=== PATIENT | female | born 1995 | race Caucasian/White ===

== ENCOUNTER 2018-04-19 13:03 | Emergency (ER) | payer SELFPAY ==
[2018-04-19 13:04] VITALS: BP 128/77; PULSE 88; RESP 18; TEMP 36.6; O2SAT 98; BMI 23.9
--- NOTE | 2018-04-19 13:36 | ED.VISSUMM ---
- ER Visit Summary Date of Service: 04/19/18 Chief Complaint: Foreign body bilateral ears History of Present Illness: The patient is a 22 F who states that she was working on her significant other Joanne believes she has metal in both ears. Significant other states that he used his cell phone camera and phone to visualize the metal in her ear canal. Patient states that she can hear the metal ringing when she speaks. She also reports decreased hearing in the left ear. Physical Examination: Afebrile vital signs are stable The only abnormality I see her ear canal on the left is a tiny whites back [address] the eardrum on the lower aspect of the canal. There is no metallic body seen. The tympanic membranes are intact and not erythematous. Emergency Department Course and Treatment: We used warm water to irrigate the ear I no longer see the tiny white back. Tympanic membranes are intact minimally red now which should resolve. Patient states that she can now feel the foreign body down near her mastoid process. I do not believe that that is an actual thing. I believe this to be psychosomatic in nature. If symptoms persist she may follow-up with ear nose and throat. Impression: 1. Tinnitus This note was generated with SkyBridge dictation software. It may contain incorrect words, spelling, and punctuation that were not noted in review of the chart prior to signing ED Disposition - Plan for ED Patient: Disposition: Home or Assisted Living Chief Complaint: Ear Problem Referrals: Matt Kowalski MD [STAFF PHYSICIAN] - (Call for ENT appointment if symptoms are persisting.)
== END 2018-04-19 13:59 | disposition home or self-care (01) ==
PROVIDERS: Emergency Provider Emergency Medicine
DX: H93.13 Tinnitus, bilateral (principal)
CPT/HCPCS: 99282

== ENCOUNTER 2025-06-24 16:16 | Emergency (ER) | payer OTHER, SELFPAY ==
[2025-06-24 16:18] VITALS: BP 107/64; PULSE 79; RESP 15; TEMP 36.5; O2SAT 100; BMI 22.8
[2025-06-24 18:17] VITALS: BP 95/60; PULSE 70; RESP 16; O2SAT 100
[2025-06-24 18:33] LABS: Hematocrit 36.6 % (37-47); Hemoglobin 12.7 g/dL (12.0-15.0); Immature Granulocytes Count 0.050 X10^3/uL (0.0-0.0); Mean Corp Hgb Conc 34.7 g/dL (32-36); Mean Corpuscular Volume 87.8 fL (81-99); Mean Platelet Vol. 10.4 fl (6.2-12.0); NRBC Flagged by Analyzer 0 % (0-5); Platelet Count 185 K/mm3 (150-450); RBC Distribution Width CV 13.7 % (11.6-14.6); RBC Distribution Width SD 43.8 fl (35.1-43.9); Red Blood Count 4.17 M/mm3 (4.2-5.4); White Blood Count 10.6 K/mm3 (4.4-11.0)
[2025-06-24 18:40] LABS: Mucous, Urine 0 SEEN /hpf (<or=2+)
[2025-06-24 19:27] LABS: Color, Urine Yellow (Yellow); Glucose, Dipstick Normal (Normal); Ketone-Dipstick 5 mg/dl (Negative); Leukocyte Esterase-Dipstick Negative /ul (Negative); Nitrite-Dipstick Negative (Negative); Occult Blood-Urine 50 /ul (Negative); Protein-Dipstick 15 mg/dl (Negative); Specific Gravity, Urine 1.015 (1.002-1.030); Urine Bilirubin Dipstick Negative (Negative)
[2025-06-24 19:32] LABS: hCG Titer Quant., Serum 98204 mIU/mL (<9 non-preg)
[2025-06-24 20:00] VITALS: BP 100/63; PULSE 69; O2SAT 100
--- NOTE | 2025-06-24 20:22 | EDS_ITS ---
HPI HPI - Female History of Present Illness Chief Complaint: Vag Bld, Preg Informant: patient Associated Symptoms P: 2 PFSH PFSH Medical History (Updated 06/24/25 @ 20:[address] Giana Guerra DO) (vaginal after ) delivery delivered Home Medications ?Medication ?Instructions ?Recorded ?Last Taken ?Type vitamins no.102-iron 90 1 cap PO DAILY Unknown History mg-folate 1 mg-dha 200 mg capsule Allergy/AdvReac Type Severity Reaction Status Date / Time No Known Allergies Allergy Verified 06/24/25 16:22 Family History no significant family his Social History Smoking Status: Former smoker EXAM Physical Exam Const Vital Signs: 06/24/25 16:18 06/24/25 18:17 06/24/25 20:00 Temperature 97.7 F L Temperature Source Temporal Pulse Rate 79 70 69 Respiratory Rate 15 16 Blood Pressure 107/64 95/60 100/63 Blood Pressure Mean 78 71 75 Pulse Ox 100 100 100 Oxygen Delivery Method Room Air Room Air Room Air MDM MDM Lab Data Labs: Laboratory Results - last 24 hr 06/24/25 06/24/25 17:40 18:35 WBC 10.6 RBC 4.17 L Hgb 12.7 Hct 36.6 L MCV 87.8 MCH 30.5 MCHC 34.7 RDW Std Deviation 43.8 RDW Coeff of [place] 13.7 Plt Count 185 MPV 10.4 Immature Gran % (Auto) 0.500 Neut % (Auto) 67.3 Lymph % (Auto) 25.7 [place] % (Auto) 3.9 Eos % (Auto) 2.2 Baso % (Auto) 0.4 Absolute Neuts (auto) 7.1 Absolute Lymphs (auto) 2.72 Nucleated RBC % 0 HCG, Quant 97283 H Urine Color Yellow Urine Clarity Clear Urine pH 6.5 Ur Specific [place] 1.015 Urine Protein 15 H Urine Glucose (UA) Normal Urine Ketones 5 H Urine Occult Blood 50 H Urine Nitrite Negative Urine Bilirubin Negative Urine Urobilinogen Normal Ur Leukocyte Esterase Negative Blood Type O POSITIVE Discharge Plan Triage Chief Complaint: Vag Bld, Preg ED Provider: Giana Guerra Dx/Rx/DC Orders Clinical Impression: Vaginal bleeding before 22 weeks gestation, Intrauterine Instructions: ED Abdominal Pain, Early , ED Prescriptions: No Action PNV [id number]-[id number] 90 mg iron- 1 mg-200 mg capsule 1 cap PO DAILY Primary Care Provider: Care Physician,No Primary Referrals: Care Physician,No Primary [Primary Care Provider] - Activity Restrictions/Additional Instructions: Call your [facility] INVESTIGATOR. Your ER bedside ultrasound is more consistent with around 10 weeks. Please follow-up with your [facility] INVESTIGATOR for dating ultrasound and further evaluation. Print Language: Yakut Disposition Disposition: Home, Self Care
--- NOTE | 2025-06-24 20:22 | ED.VIS.FEGU ---
HPI HPI - Female History of Present Illness Chief Complaint: Vag Bld, Preg Informant: patient Associated Symptoms P: 2 Narrative Narrative: Patient is a 30-year-old female presenting with vaginal bleeding early . She believes she is 17 weeks based on her last menstrual period. She has not seen DIE TECHNICIAN or establish for care yet. She states that last night around 3 AM she had a sharp pain in her right groin area. Today around 12 PM she had about an hour or 2 of vaginal bleeding. States initially was heavy but no passage of clots. The pain has since stopped. She did have intercourse last night. She currently denies any pain. Denies any other urinary symptoms. Follows with DIE TECHNICIAN in [place]. No other complaints or concerns at this time. [facility] Medical History (vaginal after ) delivery delivered Home Medications ?Medication ?Instructions ?Recorded ?Last Taken ?Type vitamins no.102-iron 90 1 cap PO DAILY 06/24/25 Unknown History mg-folate 1 mg-dha 200 mg capsule Allergy/AdvReac Type Severity Reaction Status Date / Time No Known Allergies Allergy Verified 06/24/25 16:22 Family History no significant family his Social History Smoking Status: Former smoker ROS ROS ED Constitutional Constitutional ED: Denies chills or fever(s) Cardiovascular Cardiovascular: Denies chest pain Gastrointestinal Gastrointestinal: Reports abdominal pain and nausea; Denies vomiting Genitourinary Genitourinary ED: Reports other Details: vaginal bleeding ; Denies dysuria or hematuria Musculoskeletal Musculoskeletal: Denies arthralgias, myalgias or neck pain Integumentary Denies rash Neurologic Neurologic: Denies weakness Hematologic/Lymphatic Hematologic/Lymphatic: Denies easy bleeding or easy bruising EXAM Physical Exam Const Vital Signs: 06/24/25 16:18 06/24/25 18:17 06/24/25 20:00 Temperature 97.7 F L Temperature Source Temporal Pulse Rate 79 70 69 Respiratory Rate 15 16 Blood Pressure 107/64 95/60 100/63 Blood Pressure Mean 78 71 75 Pulse Ox 100 100 100 Oxygen Delivery Method Room Air Room Air Room Air Positive well nourished and well developed General Appearance ED: well developed and NAD Neck supple Chest Wall inspection of chest normal and palpation of chest normal Resp normal respiratory effort and clear to auscultation bilaterally Cardio regular rate and regular rhythm GI normal to inspection, nondistended, normoactive bowel sounds and soft to palpation GI Narrative: No palpable fundus Auscultation: normoactive bowel sounds Palpation: Negative for tender or guarding Back/Spine no CVA tenderness Extremity normal to inspection Neuro oriented x3 Sensorium / Orientation: alert Psych mental status grossly normal Skin no rashes or lesions noted and no wounds MDM MDM MDM Narrative Medical decision making narrative: Patient valuated for vaginal weight in early . She is unsure how far along she has but think she is 7 to 8 weeks. Differential includes threatened , ectopic , urinary tract infection and anemia. CBC normal. Quant is 98,204. Urinalysis shows some contaminant of blood but otherwise not consistent with infection. Patient is also positive and does not require RhoGAM. Bedside ultrasound performed by myself. She has a single intrauterine gestation with cardiac activity at 157 bpm. Dates by biparietal distance are approximately 12 weeks. Patient is informed of findings. Do not see any free fluid on her ultrasound. She overall is well. Hemodynamically stable. Counseled that she likely further along and she thinks I suspect she is closer to 10 or 12 weeks. She verbalized understand this. Will follow-up with her DIE TECHNICIAN. Given return precautions. Discharged home in stable condition peer Lab Data Attestation: I reviewed the patient's lab results. Labs: Laboratory Results - last 24 hr 06/24/25 06/24/25 17:40 18:35 WBC 10.6 RBC 4.17 L Hgb 12.7 Hct 36.6 L MCV 87.8 MCH 30.5 MCHC 34.7 RDW Std Deviation 43.8 RDW Coeff of [place] 13.7 Plt Count 185 MPV 10.4 Immature Gran % (Auto) 0.500 Neut % (Auto) 67.3 Lymph % (Auto) 25.7 [place] % (Auto) 3.9 Eos % (Auto) 2.2 Baso % (Auto) 0.4 Absolute Neuts (auto) 7.1 Absolute Lymphs (auto) 2.72 Nucleated RBC % 0 HCG, Quant 49685 H Urine Color Yellow Urine Clarity Clear Urine pH 6.5 Ur Specific [place] 1.015 Urine Protein 15 H Urine Glucose (UA) Normal Urine Ketones 5 H Urine Occult Blood 50 H Urine Nitrite Negative Urine Bilirubin Negative Urine Urobilinogen Normal Ur Leukocyte Esterase Negative Blood Type O POSITIVE Discharge Plan Triage Chief Complaint: Vag Bld, Preg ED Provider: Giana Guerra Dx/Rx/DC Orders Clinical Impression: Vaginal bleeding before 22 weeks gestation, Intrauterine Instructions: ED Abdominal Pain, Early , ED Prescriptions: No Action PNV [id number] 90 mg iron- 1 mg-200 mg capsule 1 cap PO DAILY Primary Care Provider: Care Physician,No Primary Referrals: Care Physician,No Primary [Primary Care Provider] - Activity Restrictions/Additional Instructions: Call your DIE TECHNICIAN. Your ER bedside ultrasound is more consistent with around 10 weeks. Please follow-up with your DIE TECHNICIAN for dating ultrasound and further evaluation. Print Language: Albanian Disposition Disposition: Home, Self Care
[2025-06-24 20:32] VITALS: BP 100/63; PULSE 69; RESP 16; TEMP 36.5; O2SAT 100
[2025-06-24 21:03] LABS: Red Blood Cells-Urine 0-5 SEEN /hpf (0-5); Squamous Epithelial Cells - UA 0-5 SEEN /hpf (5-10)
== END 2025-06-24 20:37 | disposition home or self-care (01) ==
PROVIDERS: Emergency Provider Emergency Medicine; Visit Provider Emergency Medicine
DX: O20.9 Hemorrhage in early pregnancy, unspecified (principal); Z87.891 Personal history of nicotine dependence; Z3A.00 Weeks of gestation of pregnancy not specified
CPT/HCPCS: 81001; 84702; 85025; 86900; 86901; 99282; A4216